=== PATIENT | female | born 1965 | race Caucasian/White ===

== ENCOUNTER 2017-11-20 09:15 | Emergency (ER) | payer SELFPAY | END 2017-11-20 12:05 | disposition home or self-care (01) | LOC: D.ER 09:15 | DX: R68.84 Jaw pain (principal); K04.7 Periapical abscess without sinus; K08.89 Other specified disorders of teeth and supporting structures; J44.9 Chronic obstructive pulmonary disease, unspecified ==

== ENCOUNTER → 2019-04-22 08:11 | Outpatient (CLI) | payer OTHER | END | disposition home or self-care (01) | LOC: D.RT 08:11 | PROVIDERS: ATTEND Pediatrics | DX: J44.9 Chronic obstructive pulmonary disease, unspecified (principal) ==

== ENCOUNTER 2020-02-07 18:57 | Emergency (ER) | payer MEDICAID ==
[~2020-02-07] VITALS: Ht 154.9 cm; Wt 45.5 kg
[2020-02-07 19:07] VITALS: Ht 154.9 cm; Wt 45.5 kg
[2020-02-07 19:36] LABS: UDS - AMPHET NEGATIVE QUAL (NEGATIVE); UDS - BARB NEGATIVE QUAL (NEGATIVE); UDS - BENZO NEGATIVE QUAL (NEGATIVE); UDS - COCAINE NEGATIVE QUAL (NEGATIVE); UDS - OPIATE NEGATIVE QUAL (NEGATIVE); UDS - PCP NEGATIVE QUAL (NEGATIVE); UDS - THC NEGATIVE QUAL (NEGATIVE)
[2020-02-07 19:48] LABS: BASOPHILS 0.7 % (0-2); EOSINOPHILS 0.4 % (0-7); HEMATOCRIT 39.8 % (36.0-48.0); HEMOGLOBIN 13.3 g/dL (12-16); IMMATURE GRANULOCYTES 0.3 % (0-5); LYMPHOCYTES 25.3 % (15-50); MCH 31.4 pg (26.0-34.0); MCHC 33.4 g/dL (31.0-37.0); MCV 93.9 fL (80.0-100.0); MEAN PLATELET VOLUME 8.9 fL (7.4-10.4); MONOCYTES 14.8 % (2-11); NEUTROPHILS 58.5 % (40-80); PLATELET COUNT 250 10x3/uL (130-400); RBC 4.24 10x6/uL (4.00-5.40); RDW 15.9 % (11.5-14.5)
[2020-02-07 19:52] LABS: CALC OSMOLALITY 274 mosm/kg (275-300); CALCIUM 8.7 mg/dL (8.5-10.1); CARBON DIOXIDE 27.2 mmol/L (21.0-32.0); CHLORIDE - SERUM 101 mmol/L (98-107); CREATININE - SERUM 0.7 mg/dL (0.6-1.3); GLUCOSE 89 mg/dL (74-106); POTASSIUM - SERUM 3.8 mmol/L (3.5-5.1); SODIUM 139 mmol/L (136-145); UREA NITROGEN 8 mg/dL (7-18); eGFR NON AFRICAN AMERICAN > 90 mL/min (90-120)
[2020-02-07 19:59] LABS: ALBUMIN 3.3 g/dL (3.4-5.0); ALKALINE PHOSPHATASE 99 U/L (30-120); ALT (SGPT) 145 U/L (10-68); BILIRUBIN - TOTAL 0.16 mg/dL (0.2-1.3)
--- NOTE | 2020-02-08 03:58 | NUR ---
DR WHITLEY NOTIFIED AND REVIEWED PT'S BEHAVIOR AND ASSESSMENT RESULTS. PT IS A LOW RISK PER DR WHITLEY. DR WHITLEY STATED TO GIVE RESOURCES TO PT AT TIME OF DISCHARGE. NO FURTHER ORDERS AT THIS TIME. RESOURCES REVIEWED WITH PATIENT AND SHE VERBLAIZED UNDERSTANDING.
[2020-02-08 07:32] VITALS: BP 112/68
== END 2020-02-08 07:34 | disposition home or self-care (01) ==
LOC: D.ER 18:57
PROVIDERS: Family Medicine
DX: F10.129 Alcohol abuse with intoxication, unspecified (principal); Y90.8 Blood alcohol level of 240 mg/100 ml or more; I10 Essential (primary) hypertension; J44.9 Chronic obstructive pulmonary disease, unspecified; Z72.0 Tobacco use